=== PATIENT | female | born 1975 | race Caucasian/White ===

== ENCOUNTER 2016-06-14 15:42 | Emergency (ER) | payer OTHER ==
[2016-06-14 16:01] VITALS: BP 135/70
--- NOTE | 2016-06-14 16:12 | UC ---
Complaint Female HPI - HPI Summary HPI Summary: The patient comes in today for: 1. Bilateral flank pain, dysuria, and urinary frequency, hot flashes, malaise: Onset: 4 days ago. Palliative/provocative: Nothing makes her symptoms better or worse. Quality: Dull ache in the back, burning with urination. Region: Lower back, left and right. Severity: 7/10 Time: Constant. Associated symptoms: Dysuria: Present. Hematuria: NOne. Last UTI: "years ago." Renal stone history: NOne. Urinary frequency: Present Urinary urgency: Present. Fevers: NOne documented, but she has been having "hot flashes." * - History Of Current Complaint Chief Complaint: UCGU Stated Complaint: URINARY Time Seen by Provider: 06/14/16 16:05 Hx Obtained From: Patient Hx Last Menstrual Period: ABLATION - Allergies/Home Medications Allergies/Adverse Reactions: Allergies Allergy/AdvReac Type Severity Reaction Status Date / Time Sumatriptan [From Imitrex] Allergy Severe tongue Verified 06/14/16 16:00 swelling Peanut-containing Drug Allergy Hives Verified 06/14/16 16:00 Products Tramadol Allergy Vomiting Verified 06/14/16 16:00 PMH/Surg Hx/FS Hx/Imm Hx Previously Healthy: No - Vit D def, Endocrine History Of: Reports: Thyroid Disease, Hypothyroidism, Dyslipidemia Denies: Diabetes, Hyperthyroidism Cardiovascular History Of: Denies: Cardiac Disorders, Hypertension, Pacemaker/ICD, Myocardial Infarction , Congestive Heart Failure, Atrial Fibrillation, Deep Vein Thrombosis, Bleeding Disorders Respiratory History Of: Denies: COPD, Asthma, Bronchitis, Pneumonia, Pulmonary Embolism GI/ History Of: Denies: Gastroesophageal Reflux, Ulcer, Gastrointestinal Bleed, Gall Bladder Disease, Kidney Stones, Diverticulitis, Renal Disease, Urosepsis Neurological History Of: Denies: TIA, CVA, Dementia, Seizures, Migraine Psychological History Of: Reports: Anxiety, Depression Denies: Bipolar Disorder, Schizophrenia, Post Traumatic Stress Disorder Cancer History Of: Denies: Lung Cancer, Colorectal Cancer, Breast Cancer, Prostate Cancer, Cervical Cancer Other History Of: Negative For: HIV, Hepatitis B, Hepatitis C, Anticoagulant Therapy - Surgical History Surgical History: Yes Surgery Procedure, Year, and Place: appendectomy. tubal ligation. ablation/ uterine - Family History Known Family History: Positive: Cardiac Disease, Hypertension Family History: Mother a-fib. Grandfather of [place]> - Social History Occupation: Employed Full-time Alcohol Use: Rare Substance Use Type: Marijuana Substance Use Comment - Amount & Last Used: rare use Smoking Status (MU): Light Every Day Tobacco Smoker Type: Cigarettes Amount Used/How Often: 1/2 ppd Length of Time of Smoking/Using Tobacco: age 16 yo Have You Smoked in the Last Year: Yes Household Exposure Type: Cigarettes - Immunization History Most Recent Influenza Vaccination: no Review of Systems Constitutional: Negative Skin: Negative Eyes: Negative ENT: Negative Respiratory: Cough - Coughing up a lot of mucous. Cardiovascular: Negative Gastrointestinal: Negative Genitourinary: Dysuria, Hematuria, Frequency, Urgency All Other Systems Reviewed And Are Negative: Yes Physical Exam Triage Information Reviewed: Yes Appearance: Ill-Appearing - She did not look lethargic, but more in pain., Pain Distress - When walking into the room, the patient was grimacing and bracing herself in her chair. She had reduced psychomotor activity/animation--keeping herself still. Vital Signs: Initial Vital Signs Temp 97.9 F 06/14/16 15:54 Pulse 92 06/14/16 15:54 Resp 16 06/14/16 15:54 BP 135/70 06/14/16 15:54 Pulse Ox 99 06/14/16 15:54 Vital Signs Reviewed: Yes Eyes: Positive: Conjunctiva Clear. Negative: Discharge ENT: Positive: Hearing grossly normal. Negative: Pharyngeal erythema, Nasal congestion, Nasal drainage, TM bulging, TM dull, TM red, Tonsillar swelling, Tonsillar exudate Dental: Negative: Gross Decay/Caries @, Dental Fracture @ Neck: Positive: Supple, Nontender, No Lymphadenopathy. Negative: Nuchal Rigidity Respiratory: Positive: Lungs clear, No respiratory distress, No accessory muscle use. Negative: Crackles, Rhonchi, Wheezing Cardiovascular: Positive: RRR, No Murmur Abdomen Description: Positive: No Organomegaly, CVA Tenderness (R), CVA Tenderness (L) - When touching her CVA with mininmal pressure, she would arch her back, and grimace, Guarding. Negative: Nontender - She palpation of her suprapubic area, she would lift her head and shoulder off from the table and grimace. Musculoskeletal: Positive: Strength Intact, ROM Intact, No Edema Neurological: Positive: Alert, Muscle Tone Normal Psychological: Positive: Age Appropriate Behavior, Consolable Skin: Negative: rashes, breakdown Diagnostics - Laboratory Diagnostic Studies Completed/Ordered: Urine screen: Specific gravity: 1.025. WBC: 2+. Nitriate: +. Blood: +. Glucose: -. Protein: +. Complaint Female Dx - Course Course Of Treatment: The patient was told that her level of pain was worse than what is expected for a simple UTI, and therefore I am suspecting that she may have something going on which is worse. Based on her physical findings, she was recommended go to the ER for a more in-depth evaluation. She agreed to go by private car. - Differential Dx/Diagnosis Provider Diagnoses: ABdominal pain (etiology undetermined). Urinary tract infection. bilateral lower back pain (CVA tenderness/pyelonephritis?) - Physician Notifications Discussed Patient Care With: Cachorro Cifuentes Time Discussed With Above Provider: 16:38 Discharge - Discharge Plan Condition: Stable Disposition: AGAINST MEDICAL ADVICE Additional Instructions: Patient is supposed to go to [facility] ER for a more in-depth evaluation of her abdominal pain and lower back/Bilateral CVA tenderness.
== END 2016-06-14 16:29 | disposition left against medical advice (07) ==
LOC: UCCORT 15:42
DX: N39.0 Urinary tract infection, site not specified (principal); M54.5 Low back pain; R10.9 Unspecified abdominal pain; Z88.5 Allergy status to narcotic agent; Z88.8 Allergy status to other drugs, medicaments and biological substances; F17.210 Nicotine dependence, cigarettes, uncomplicated
CPT/HCPCS: 81003; 87077; 87086; 87186; 99212; G0463

== ENCOUNTER 2017-08-27 07:58 | Emergency (ER) | payer OTHER ==
[2017-08-27 08:21] VITALS: BP 114/65
--- NOTE | 2017-08-27 08:38 | UC ---
Minor Trauma HPI - HPI Summary HPI Summary: Fall down carpeted stairs this morning with injury to Left shoulder and right foot. No numbness or weakness. Denies head or neck trauma. No abd pain or vomiting. - History of Current Complaint Chief Complaint: UCLowerExtremity Stated Complaint: S/P FALL/RT FOOT/ANKLE/LT SHOULDER Time Seen by Provider: 08/27/17 08:27 Hx Obtained From: Patient Hx Last Menstrual Period: uterine ablation ?: No Onset/Duration: Sudden Onset, Lasting Hours Onset Of Pain: Immediate Severity Initially: Moderate Severity Currently: Moderate Pain Intensity: 8 Mechanism Of Injury: Blunt Trauma Aggravating Factor(s): Movement, Weight Bearing Alleviating Factor(s): Elevation Associated Signs And Symptoms: Negative: Loss Of Consciousness, Ecchymosis, Swelling Related History: Negative: Occupational Injury - Allergies/Home Medications Allergies/Adverse Reactions: Allergies Allergy/AdvReac Type Severity Reaction Status Date / Time peanut Allergy Hives Verified 08/27/17 08:15 sumatriptan Allergy Swelling Verified 08/27/17 08:15 Of Face,Lips,& Throat tramadol Allergy Vomiting Verified 08/27/17 08:15 PMH/Surg Hx/FS Hx/Imm Hx Previously Healthy: No - thyroid and mental health disease. Other History Of: Negative For: HIV, Hepatitis B, Hepatitis C, Anticoagulant Therapy - Surgical History Surgical History: Yes Surgery Procedure, Year, and Place: appendectomy. tubal ligation. ablation/ uterine - Family History Known Family History: Positive: None, Cardiac Disease, Hypertension Family History: Mother a-fib. Grandfather of [place]> - Social History Alcohol Use: Occasionally Substance Use Type: Marijuana Substance Use Comment - Amount & Last Used: rare use Smoking Status (MU): Light Every Day Tobacco Smoker Type: Cigarettes Amount Used/How Often: 1/2 ppd Length of Time of Smoking/Using Tobacco: age 16 yo Have You Smoked in the Last Year: Yes Household Exposure Type: Cigarettes - Immunization History Most Recent Influenza Vaccination: no Review of Systems Musculoskeletal: Arthralgia, Decreased ROM, Myalgia All Other Systems Reviewed And Are Negative: Yes Physical Exam Triage Information Reviewed: Yes Appearance: Pain Distress - some pain during exam otherwise pleasant and cooperative Vital Signs: Initial Vital Signs Temp 97.6 F 08/27/17 08:14 Pulse 94 08/27/17 08:14 Resp 18 08/27/17 08:14 BP 114/65 08/27/17 08:14 Pulse Ox 99 08/27/17 08:14 Vital Signs Reviewed: Yes Eyes: Positive: Conjunctiva Clear. Negative: Conjunctiva Inflamed ENT: Positive: Normal ENT inspection - No head or neck bruising or abrasions. Neck: Positive: Supple, Nontender. Negative: Nuchal Rigidity Respiratory: Positive: Lungs clear, Normal breath sounds, No respiratory distress, No accessory muscle use. Negative: Respiratory distress, Decreased breath sounds, Accessory muscle use, Crackles, Rhonchi Cardiovascular: Positive: No Murmur, Pulses Normal, Brisk Capillary Refill Abdomen Description: Positive: Nontender, No Organomegaly, Soft. Negative: Distended, Guarding Musculoskeletal: Positive: No Edema, Other: - No tenderness of clavicle, c spine or wrists. She has tenderness of the left elbow and proximal humerus. No tenderness of proximal fibula or lateral/medial malleolus or heel. there is tenderness of the metatarsals. Neurological: Positive: Alert, Muscle Tone Normal. Negative: Fatigued, Lethargic, Unresponsive, Abnormal Muscle Tone Psychological: Positive: Age Appropriate Behavior Skin: Positive: Other - No bruising of the involved sites.. Negative: rashes Diagnostics - Radiology No standard instances Xray Interpretation: No Acute Changes Radiology Interpretation Completed By: Radiologist Minor Trauma Course/Dx - Differential Dx/Diagnosis Differential Diagnosis/HQI/PQRI: Abrasion(s), Contusion(s), Fracture, Dislocation, Hematoma(s), Laceration(s), Sprain, Strain Provider Diagnoses: contusion left shoulder. contusion right foot. sprain left elbow. Discharge - Sign-Out/Discharge Documenting (check all that apply): Discharge/Admit/Transfer - Discharge Plan Condition: Good Disposition: HOME Patient Education Materials: Contusion in Adults (ED) Referrals: NAM Rodarte [Primary Care Provider] - - Billing Disposition and Condition Condition: GOOD Disposition: HOME
--- NOTE | 2017-08-27 09:10 | RAD ---
INDICATION: LEFT elbow pain post fall down stairs. COMPARISON: No relevant prior exams available on the [facility] P[facility] for comparison. TECHNIQUE: AP, lateral, and oblique views LEFT elbow. REPORT AND IMPRESSION: Negative for fat pad displacement to indicate joint effusion. Negative for fracture or malalignment. Mild dorsal soft tissue swelling.
--- NOTE | 2017-08-27 09:10 | RAD ---
INDICATION: Right foot injury. TECHNIQUE: 3 views of the right foot were obtained. FINDINGS: The bones are in normal alignment. No fracture is seen. Joint spaces appear maintained. IMPRESSION: NO EVIDENCE FOR FRACTURE.
--- NOTE | 2017-08-27 09:12 | RAD ---
Indication: LEFT shoulder pain post fall. Comparison: February 02, 2016 Technique: Internal rotation AP, external rotation Grashey, scapular Y, axillary views LEFT shoulder Report: Negative for fracture. Normal acromioclavicular and glenohumeral joint alignment. Small bone island at the superior humeral head without concern. No significant acromioclavicular or glenohumeral joint arthropathic change. Negative for calcific tendinopathy. Unremarkable soft tissue contours. IMPRESSION: Negative radiographic exam of the LEFT shoulder.
== END 2017-08-27 09:21 | disposition home or self-care (01) ==
LOC: UCCORT 07:58
DX: S40.012A Contusion of left shoulder, initial encounter (principal); S90.31XA Contusion of right foot, initial encounter; S53.402A Unspecified sprain of left elbow, initial encounter; W10.9XXA Fall (on) (from) unspecified stairs and steps, initial encounter; Y93.9 Activity, unspecified; Y92.9 Unspecified place or not applicable; Z88.5 Allergy status to narcotic agent; Z88.8 Allergy status to other drugs, medicaments and biological substances; F17.210 Nicotine dependence, cigarettes, uncomplicated
CPT/HCPCS: 99211; G0463

== ENCOUNTER 2018-04-09 12:27 | Emergency (ER) | payer BC, MEDICAID, OTHER ==
[2018-04-09 12:34] VITALS: BP 116/69
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
== END 2018-04-09 13:27 | disposition left against medical advice (07) ==
LOC: UCCORT 12:27
DX: M54.2 Cervicalgia (principal); M62.81 Muscle weakness (generalized); Z88.5 Allergy status to narcotic agent; Z88.8 Allergy status to other drugs, medicaments and biological substances; F17.210 Nicotine dependence, cigarettes, uncomplicated
CPT/HCPCS: 99212; G0463

== ENCOUNTER 2019-06-03 14:11 | Emergency (ER) | payer BC, MEDICAID ==
[2019-06-03 17:31] VITALS: BP 118/76
--- NOTE | 2019-06-03 18:10 | UC ---
UC General HPI - HPI Summary HPI Summary: 43 yo with pain over the left low ribs x several days. No hx of shingles, was not aware of rash until today's assessment. - History of Current Complaint Chief Complaint: UCGeneralIllness Stated Complaint: LT RIB PAIN Time Seen by Provider: 06/03/19 17:58 Hx Obtained From: Patient Hx Last Menstrual Period: hx uterine ablation Onset/Duration: Gradual Onset - for 3 days, rash just today Timing: Constant Onset Severity: Moderate Current Severity: Moderate Pain Intensity: 7 - Allergy/Home Medications Allergies/Adverse Reactions: Allergies Allergy/AdvReac Type Severity Reaction Status Date / Time peanut Allergy Hives Verified 06/03/19 17:25 sumatriptan Allergy Swelling Verified 06/03/19 17:25 Of Face,Lips,& Throat tramadol Allergy Vomiting Verified 06/03/19 17:25 Home Medications: Home Medications Cetirizine* [ZyrTEC 10 MG TAB*] 10 mg PO BEDTIME 11/20/12 [History Confirmed 08/17] Cholecalciferol TAB* [Vitamin D TAB*] 2,000 units PO BEDTIME 11/20/12 [History Confirmed 06/03/19] Ibuprofen TAB* [Motrin TAB* 400 MG] 800 mg PO Q8H PRN 11/20/12 [History Confirmed 06/03/19] Simvastatin TAB(NF) [Zocor 20 MG (NF)] 40 mg PO BEDTIME 11/20/12 [History Confirmed 06/03/19] Effexor Xr CAP* 250 mg PO BEDTIME 03/22/14 [History Confirmed 06/03/19] Abilify TAB* 5 mg BEDTIME 09/28/14 [History Confirmed 06/03/19] LORazepam TAB(*) [Ativan 0.5 MG TAB (*)] 0.5 mg PO BID PRN 12/20/14 [History Confirmed 06/03/19] Levothyroxine TAB* [Synthroid TAB*] 50 mcg PO DAILY 02/02/16 [History Confirmed 06/03/19] Oxybutynin TAB* [Ditropan TAB*] 5 mg PO DAILY 11/25/18 [History Confirmed ] ValACYclovir (*) [Valtrex 1 GM(*)] 1 gm PO TID #21 tab 06/03/19 [Rx] PMH/Surg Hx/FS Hx/Imm Hx - Additional Past Medical History Additional PMH: vitmain D deficiency Previously Healthy: Yes Psychological History: Anxiety, Depression, Post Traumatic Stress Disorder Other History Of: Negative For: HIV, Hepatitis B, Hepatitis C, Anticoagulant Therapy - Surgical History Surgical History: Yes Surgery Procedure, Year, and Place: appendectomy. tubal ligation. ablation/ uterine - Family History Known Family History: Positive: Cardiac Disease - father has CHF, Hypertension Family History: Mother a-fib. Grandfather of [place]> - Social History Occupation: Employed Full-time Lives: With Family Alcohol Use: Occasionally Substance Use Type: None Substance Use Comment - Amount & Last Used: rare use Smoking Status (MU): Light Every Day Tobacco Smoker Type: Cigarettes Amount Used/How Often: 1/2 ppd Length of Time of Smoking/Using Tobacco: age 16 yo Have You Smoked in the Last Year: Yes Household Exposure Type: Cigarettes - Immunization History Most Recent Influenza Vaccination: no Review of Systems All Other Systems Reviewed And Are Negative: Yes Constitutional: Positive: Fatigue Skin: Positive: Rash Eyes: Positive: Negative ENT: Positive: Negative Respiratory: Positive: Negative Cardiovascular: Positive: Negative Gastrointestinal: Positive: Negative Genitourinary: Positive: Negative, Other - urine dark last week, normal now Motor: Positive: Negative Neurovascular: Positive: Negative Musculoskeletal: Positive: Myalgia - hx of chronic pain for arthritis Neurological/Mental Status: Positive: Negative Psychological: Positive: Negative Is Patient Immunocompromised?: No Physical Exam Triage Information Reviewed: Yes Appearance: Pain Distress - mild to moderate Vital Signs: Initial Vital Signs Temp 98 F 06/03/19 17:26 Pulse 79 06/03/19 17:26 Resp 16 06/03/19 17:26 BP 118/76 06/03/19 17:26 Pulse Ox 99 06/03/19 17:26 Eye Exam: Normal ENT: Positive: Pharynx normal Neck: Positive: Supple, Nontender, No Lymphadenopathy Respiratory: Positive: Lungs clear, Normal breath sounds Cardiovascular: Positive: RRR, No Murmur Abdomen Description: Positive: Nontender, No Organomegaly, Soft Musculoskeletal Exam: Normal Neurological Exam: Normal Psychological Exam: Other - mildly depressed mood, under stress. Skin Exam: Other - erythematous patches left T8 dermatome. Course/Dx - Course Course Of Treatment: valtrex for tx of shingles. Discussed pain control. - Differential Dx - Multi-Symptom Differential Diagnoses: Urinary Tract Infection, Other - herpes zoster - Diagnoses Provider Diagnosis: Herpes zoster Discharge ED - Sign-Out/Discharge Documenting (check all that apply): Patient Departure All imaging exams completed and their final reports reviewed: No Studies - Discharge Plan Condition: Stable Disposition: HOME Prescriptions: ValACYclovir (*) [Valtrex 1 GM(*)] 1 gm PO TID #21 tab Patient Education Materials: Shingles (ED) Referrals: Doris Weber PA [Primary Care Provider] - Additional Instructions: begin antiviral for treatment of shingles, to decrease the neuroalgia pain which results from this. Continue use of ibupofen for control of pain. follow up with Dilan Weber next week to reassess control of pain. - Billing Disposition and Condition Condition: STABLE Disposition: Home
== END 2019-06-03 18:22 | disposition home or self-care (01) ==
LOC: UCCORT 14:11
DX: B02.9 Zoster without complications (principal); G89.29 Other chronic pain; M19.90 Unspecified osteoarthritis, unspecified site; E55.9 Vitamin D deficiency, unspecified; F41.9 Anxiety disorder, unspecified; F32.9 Major depressive disorder, single episode, unspecified; F17.210 Nicotine dependence, cigarettes, uncomplicated; Z79.899 Other long term (current) drug therapy; Z91.010 Allergy to peanuts; Z88.8 Allergy status to other drugs, medicaments and biological substances; Z88.5 Allergy status to narcotic agent
CPT/HCPCS: 99212; G0463